=== PATIENT | male | born 1975 | race Caucasian/White ===

== ENCOUNTER 2017-01-30 18:04 | Emergency (ER) | payer BC ==
[~2017-01-30] VITALS: Ht 167.6 cm; Wt 76.2 kg
--- NOTE | 2017-01-30 18:53 | NUR ---
PT PRESENTED TO THE ER WITH A C/O RT SCROTAL ABCESS X3 DAYS. PT SEEN BY ARIANE FLORES.
[2017-01-30] MEDS ORDERED: HYDROMORPHONE 1 MG/1 ML DISP.SYRIN ONE (19:11)
[2017-01-30] MEDS ORDERED: CLINDAMYCIN HCL 150 MG CAPSULE PO ONE (19:11)
[2017-01-30] MEDS: HYDROMORPHONE 1 MG/1 ML DISP.SYRIN IM ONE (19:18)
[2017-01-30] MEDS: CLINDAMYCIN HCL 150 MG CAPSULE PO ONE (19:19)
[2017-01-30] MEDS: LIDOCAINE HCL/PF 1% 30 ML VIAL TP ONE (19:19)
[2017-01-30 19:56] VITALS: BP 123/66
--- NOTE | 2017-01-30 19:56 | NUR ---
PT. VERBALIZED UNDERSTANDING OF AFTERCARE INSTRUCTIONS.Patient discharged to home in stable condition. Written and verbal after care instructions given. Patient verbalizes understanding of instruction.
== END 2017-01-30 19:04 | disposition home or self-care (01) ==
LOC: ER 18:06
DX: N49.2 Inflammatory disorders of scrotum (principal); F17.200 Nicotine dependence, unspecified, uncomplicated; Z72.0 Tobacco use
CPT/HCPCS: A4606; A6402; J1170; J3490; Z7610

== ENCOUNTER 2017-03-18 18:55 | Emergency (ER) | payer BC ==
[~2017-03-18] VITALS: Ht 172.7 cm; Wt 75.7 kg
[2017-03-18 19:04] VITALS: BP 132/72
--- NOTE | 2017-03-18 19:23 | NUR ---
JESSICA VEHICLE CALIBRATION ENGINEER AT BEDSIDE FOR EVAL.
[2017-03-18] MEDS ORDERED: predniSONE 20 MG TABLET PO ONE (19:30)
[2017-03-18] MEDS ORDERED: ALBUTEROL FS 2.5 MG/3 ML VIAL.NEB NEB ONE (19:30)
--- NOTE | 2017-03-18 19:34 | NUR ---
NANOTECHNICIAN AT BEDSIDE FOR BLOOD DRAW.
[2017-03-18] MEDS ORDERED: predniSONE 20 MG TABLET ONE (19:35)
--- NOTE | 2017-03-18 19:35 | NUR ---
RADIOLOGY AT BEDSIDE FR CHEST XRAY.
[2017-03-18 19:37] LABS: BASOPHILS # (AUTO) 0.1 /CMM (0.0-0.2); BASOPHILS % (AUTO) 0.4 % (0.0-2.0); EOSINOPHILS # (AUTO) 0.2 /CMM (0.0-0.7); EOSINOPHILS % (AUTO) 1.8 % (0.0-6.0); HEMATOCRIT 45 % (39-51); HEMOGLOBIN 15.3 g/dL (13.5-17.5); LYMPHOCYTES % (AUTO) 22.5 % (20.0-44.0); MEAN CORPUSCULAR HEMOGLOBIN 33 PG (26.0-33.0); MEAN CORPUSCULAR HGB CONC 34 g/dl (31.0-36.0); MEAN CORPUSCULAR VOLUME 96 fL (80-96); MONOCYTES # (AUTO) 0.7 /CMM (0.1-1.30); MONOCYTES % (AUTO) 5.6 % (2.0-12.0); NEUTROPHILS # (AUTO) 9.3 /CMM (1.8-8.9); NEUTROPHILS % (AUTO) 69.7 % (43.0-81.0); PLATELET COUNT (AUTO) 170 /CMM (150-450); RDW COEFFICIENT OF VARIATION 13.7 (11.5-15.0); RED BLOOD CELL COUNT(AUTO) 4.69 MIL/uL (4.5-6.0); WHITE BLOOD COUNT (AUTO) 13.3 K/uL (4.3-11.0)
[2017-03-18 19:44] LABS: CALCIUM, SERUM 8.9 mg/dL (8.5-10.1); CARBON DIOXIDE 28 mmol/L (21-32); CHLORIDE 105 mmol/L (98-107); GFR 82 mL/min (>60); GLUCOSE 108 mg/dL (74-106); POTASSIUM 3.7 mmol/L (3.5-5.1); SODIUM SERUM 140 mmol/L (136-145); UREA NITROGEN, BLOOD 14 mg/dL (7-18)
[2017-03-18 19:52] LABS: TROPONIN I < 0.017 ng/mL (0.00-0.056)
[2017-03-18 19:57] LABS: B-TYPE NATRIURETIC PEPTIDE 80 PG/ML (0-125)
--- NOTE | 2017-03-18 20:05 | NUR ---
CALLED RT FOR BREATHING TREATMENT
[2017-03-18] MEDS ORDERED: ALBUTEROL FS 2.5 MG/3 ML VIAL.NEB ONE (20:13)
== END 2017-03-18 20:33 | disposition home or self-care (01) ==
LOC: EDUNIT# 18:55 → ER 18:56
DX: J40 Bronchitis, not specified as acute or chronic (principal); J45.909 Unspecified asthma, uncomplicated; F17.200 Nicotine dependence, unspecified, uncomplicated
CPT/HCPCS: 36415; 71010-TC; 80048-TC; 83880; 84484-TC; 85025-TC; A4606; Z7610